=== PATIENT | female | born 1990 | race American Indian/Alaskan Native ===

== ENCOUNTER 2019-04-28 11:50 | Emergency (ER) | payer SELFPAY ==
--- NOTE | 2019-04-28 11:56 | Emergency Department Report ---
Blank Doc - Documentation Documentation: 29-year-old female that presents with rectal pain and torn feeling. This initial assessment/diagnostic orders/clinical plan/treatment(s) is/are subject to change based on patient's health status, clinical progression and re- assessment by fellow clinical providers in the ED. Further treatment and workup at subsequent clinical providers discretion. Patient/guardians urged not to elope from the ED as their condition may be serious if not clinically assessed and managed. Initial orders include: 1- Patient sent to [facility] for further evaluation and treatment 2- rectal exam to be done
[2019-04-28 11:57] VITALS: BP 120/62
--- NOTE | 2019-04-28 13:39 | Emergency Department Report ---
ED General Adult HPI - General Chief complaint: Rectal Pain Stated complaint: RECTAL BLEEDING/TEARING/PAIN Time Seen by Provider: 04/28/19 11:56 Source: patient Mode of arrival: Ambulatory Limitations: No Limitations - History of Present Illness Initial comments: This is a 29-year-old -[place] male who presents to the emergency room with rectal bleeding and pain for one week. Past medical history of constipation. Patient states bowel movements are usually rare, hard, and balls. For the past week she is having bowel movements daily and noticed blood with white 3. Patient states he felt like her rectum is tearing with each bowel movement. She reports severe pain with sitting. Last menstrual period started 04/27/2019. She denies a history of hemorrhoids. She is taking NSAIDs with minimal improvement of symptoms. She denies tarry stools, bright red blood mixed with stools, dizziness, abdominal pain, or weakness. Onset/Timin -: week(s) Location: buttocks (rectum) Radiation: non-radiation Severity scale (0 -10): 10 Quality: aching Consistency: constant Improves with: none Worsens with: movement, other (sitting) Associated Symptoms: denies other symptoms Treatments Prior to Arrival: NSAID - Related Data Previous Rx's Medication Instructions Recorded Last Taken Type Hydrocortisone Acetate [Proctocort 30 mg RC BID #14 supp.rect 04/28/19 Unknown Rx SUPPOS] Ibuprofen [Motrin 600 MG tab] 600 mg PO Q8H PRN #20 tablet 04/28/19 Unknown Rx Allergies Allergy/AdvReac Type Severity Reaction Status Date / Time No Known Allergies Allergy Unverified 04/28/19 11:53 ED Review of Systems ROS: Stated complaint: RECTAL BLEEDING/TEARING/PAIN Other details as noted in HPI Constitutional: denies: chills, fever Respiratory: denies: cough, shortness of breath, wheezing Cardiovascular: denies: chest pain, palpitations Gastrointestinal: constipation, hematochezia. denies: abdominal pain, nausea, diarrhea, hematemesis, melena Genitourinary: denies: urgency, dysuria, discharge Skin: denies: rash, lesions Neurological: denies: headache, weakness, paresthesias Psychiatric: denies: anxiety, depression ED Past Medical Hx - Past Medical History Previous Medical History?: No - Surgical History Past Surgical History?: Yes Additional Surgical History: C section - Social History Smoking Status: Never Smoker Substance Use Type: Alcohol - Medications Home Medications: Home Medications Medication Instructions Recorded Confirmed Last Taken Type Hydrocortisone Acetate [Proctocort 30 mg RC BID #14 supp.rect 04/28/19 Unknown Rx SUPPOS] Ibuprofen [Motrin 600 MG tab] 600 mg PO Q8H PRN #20 tablet 04/28/19 Unknown Rx ED Physical Exam - General Limitations: No Limitations General appearance: alert, in no apparent distress, obese - Respiratory Respiratory exam: Present: normal lung sounds bilaterally. Absent: respiratory distress - Cardiovascular Cardiovascular Exam: Present: regular rate, normal rhythm. Absent: systolic murmur, diastolic murmur, rubs, gallop - GI/Abdominal GI/Abdominal exam: Present: soft, normal bowel sounds. Absent: distended, tenderness, guarding, rebound, rigid, organomegaly, mass, hernia - Rectal Rectal exam: Present: normal rectal tone, heme (-) stool, hemorrhoids (palpated internal hemorrhoids). Absent: decreased rectal tone, heme (+) stool, black stool, bloody stool, fecal impaction, mass, tenderness - Back Exam Back exam: Absent: CVA tenderness (R), CVA tenderness (L) - Neurological Exam Neurological exam: Present: alert, oriented X3, normal gait - Psychiatric Psychiatric exam: Present: normal affect, normal mood - Skin Skin exam: Present: warm, dry, intact, normal color. Absent: rash ED Course Vital Signs 04/28/19 11:56 Temperature 98.5 F Pulse Rate 73 Respiratory 16 Rate Blood Pressure 120/62 O2 Sat by Pulse 98 Oximetry ED Medical Decision Making - Medical Decision Making Patient was examined by me. Patient is nontoxic appearing and stable. Vitals are normal. Digital exam findings of internal hemorrhoids, normal rectal tone, negative occult stool. Given analgesics while in the ER. Start Proctofoam and ibuprofen. Instructed to take Tylenol or ibuprofen for pain. Follow up with PCP or return to the ER with worsening symptoms. Patient discharged home in stable condition. Critical care attestation.: If time is entered above; I have spent that time in minutes in the direct care of this critically ill patient, excluding procedure time. ED Disposition Clinical Impression: Hemorrhoids, internal, Anal or rectal pain Disposition: TO HOME OR SELFCARE Is pt being admited?: No Condition: Stable Instructions: Hemorrhoids (ED) Additional Instructions: Increase fiber intake with foods and/or metamucil. Increase water intake and drink or eat prunes. Take colace daily to soften stool. Follow up with a primary care doctor in 24-72 hours. Prescriptions: Ibuprofen [Motrin 600 MG tab] 600 mg PO Q8H PRN #20 tablet PRN Reason: Pain Hydrocortisone Acetate [Proctocort SUPPOS] 30 mg RC BID #14 supp.rect Referrals: [facility] [Outside] - 3-5 Days [facility] [Outside] - 3-5 Days [facility] [Outside] - 3-5 Days Forms: Work/School Release Form(ED) Time of Disposition: 15:27
[2019-04-28] MEDS ORDERED: traMADol 50 MG TAB PO ONE (15:19)
== END 2019-04-28 15:38 | disposition home or self-care (01) ==
LOC: ED 11:50
DX: K64.8 Other hemorrhoids (principal)
CPT/HCPCS: 99282